=== PATIENT | male | born 1945 | race Caucasian/White ===

== ENCOUNTER 2016-07-28 20:56 | Inpatient (IN) | payer OTHER ==
--- NOTE | 2016-07-28 21:12 | PDOC ---
History of Present Illness - History of Present Illness Initial Comments: 07/28/16 21:25 The patient is a 71 year old male with a past medical hx of HTN who presents to the ED via EMS for evaluation of right sided facial droop and right sided facial weakness since this evening. The patient reports he was coming home from the [facility] and noticed this facial droop when he got home. His family reports he was fine this morning and afternoon. The patient states he had a couple beers at the [facility] but denies any drug or tobacco use. The patient denies any headache, head trauma, chest pain, SOB, fever, chills. Surgical hx: knee surgery, shoulder surgery, colon surgery <Tamanna Leiva - Last Filed: 07/29/16 01:40> - General History Source: Patient, Family Exam Limitations: No Limitations <Tejal Chapman - Last Filed: 08/01/16 07:35> - General Chief Complaint: Facial Droop Stated Complaint: FACIAL DROOP Time Seen by Provider: 07/28/16 21:09 Past History <Tamanna Leiva - Last Filed: 07/29/16 01:40> - Psycho/Social/Smoking Cessation Hx Suicidal Ideation: No Smoking History: Never smoked Have you smoked in the past 12 months: No Information on smoking cessation initiated: No Hx Alcohol Use: No Drug/Substance Use Hx: No <Tejal Chapman - Last Filed: 08/01/16 07:35> - Past Medical History Allergies/Adverse Reactions: Allergies Allergy/AdvReac Type Severity Reaction Status Date / Time No Known Allergies Allergy Verified 07/28/16 21:05 Home Medications: Ambulatory Orders Aspirin [Aspirin EC] 81 mg PO DAILY 07/29/16 Ketotifen Fumarate [Itchy Eye] 5 ml OP BID 07/29/16 Loperamide HCl [Imodium -] 2 mg PO DAILY PRN 07/29/16 Losartan Potassium 100 mg PO DAILY 07/29/16 Mometasone Furoate [Asmanex] 220 mcg IH BID 07/29/16 Tamsulosin HCl [Flomax] 0.4 mg PO DAILY 07/29/16 Atorvastatin Ca [Lipitor] 20 mg PO HS #30 tablet 07/30/16 Atorvastatin Ca [Lipitor] 40 mg PO HS #30 tablet 07/30/16 Felodipine [Felodipine ER] 10 mg PO DAILY 07/30/16 Hydrochlorothiazide 25 mg PO DAILY 07/30/16 Omeprazole 20 mg PO BID 07/30/16 Polyvinyl Alcohol [Artificial Tears] 1 drop OD Q4H PRN #0 drop 07/30/16 Prednisone 10 mg PO ASDIR #12 tablet 07/30/16 Review of Systems - Review of Systems Able to Perform ROS?: Yes Comments:: 07/28/16 21:26 GENERAL/CONSTITUTIONAL: No: fever, chills, loss of appetite. HEAD, EYES, EARS, NOSE AND THROAT: No: change in vision, ear pain, discharge, sore throat, throat swelling. CARDIOVASCULAR: No: chest pain, lightheadedness, palpitations, syncope RESPIRATORY: No: cough, shortness of breath, wheezing, hemoptysis, stridor. GASTROINTESTINAL: No: nausea, vomiting, abdominal cramping, diarrhea, rectal bleeding, constipation. GENITOURINARY: No: dysuria, hematuria, frequency, urgency, flank pain. MUSCULOSKELETAL: No: back pain, neck pain, joint pain, muscle swelling or pain SKIN: No: lesions, pallor, rash or easy bruising. NEUROLOGIC: +Right facial weakness. No: headache, vertigo, paresthesias ENDOCRINE: No: unexplained weight gain or loss HEMATOLOGIC/LYMPHATIC: No: anemia, easy bleeding, swelling nodes <Tamanna Leiva - Last Filed: 07/29/16 01:40> *Physical Exam - Vital Signs Last Vital Signs Temp Pulse Resp BP Pulse Ox 97.6 F 88 20 148/94 99 07/28/16 21:05 07/28/16 21:05 07/28/16 21:05 07/28/16 21:05 07/28/16 21:05 - Physical Exam Comments: 07/29/16 01:39 GENERAL: The patient is in no acute distress. HEAD: Normal with no signs of trauma. EYES: PERRLA, EOMI, sclera anicteric, conjunctiva clear. ENT: Ears normal, nares patent, oropharynx clear without exudates. Moist mucous membranes. NECK: Normal range of motion, supple without lymphadenopathy, JVD, or masses. LUNGS: Breath sounds equal, clear to auscultation bilaterally. No wheezes, and no crackles. HEART:Regular rate and rhythm, normal S1 and S2 without murmur, rub or gallop. ABDOMEN: Soft, nontender, normoactive bowel sounds. No guarding, no rebound. EXTREMITIES: Normal range of motion, no edema. No clubbing or cyanosis. No erythema, or tenderness. NEUROLOGICAL: +See NIHSS MUSCULOSKELETAL: Back nontender to palpation, no CVA tenderness SKIN: Warm, Dry, normal turgor, no rashes or lesions noted. <Tamanna Leiva - Last Filed: 07/29/16 01:40> - Vital Signs Last Vital Signs Temp Pulse Resp BP Pulse Ox 97.6 F 88 20 148/94 99 07/28/16 21:05 07/28/16 21:05 07/28/16 21:05 07/28/16 21:05 07/28/16 21:05 <Tejal Chapman - Last Filed: 08/01/16 07:35> NIH Stroke Scale - Last Known Well Date/Time & Onset Date Last Known Well: 07/28/16 Time Last Known Well: 19:00 - Initial Evaluation Level of consciousness: Alert Ask patient the month and their age: Answers both correctly Ask patient to open & close eyes; make fist and let go: Obeys both correctly Best gaze (horizontal eye movement): Normal Visual field testing: No visual field loss Facial paresis (Show teeth/raise eyebrows/close eyes tight): Complete paralysis of one or both sides (Upper and lower face) Motor Function: Left Arm: Normal Motor Function: Right Arm: Normal (extends arm 90 (or 45) degrees for 10 seconds without drift Motor Function: Left Leg: Normal (extends leg 30 degrees for 5 seconds without drift) Motor Function: Right Leg: Normal (extends leg 30 degrees for 5 seconds without drift) Limb Ataxia: No ataxia Sensory(Use pinprick test arms,legs,trunk,face/side to side): Normal Best language (Describe picture, name items, read sentences): No Aphasia Dysarthria (read several words): Normal articulation Extinction and Inattention: No abnormality - Total Score NIH Stroke Scale Score: 3 <Tejal Chapman - Last Filed: 08/01/16 07:35> tPA Exclusion Checklist 0-3hr - Time Elapsed Date last known well: 07/28/16 Time last known well: 19:00 Elaspsed time: 3 Day(s) and 12 Hour(s) and 32 Minutes - Thrombolytic Therapy Candidate Is the patient eligible for Thrombolytic Therapy?: No - Exclusion Criteria 0-3hr SBP greater than 185 or DBP greater than 110mmHg despite tx: No Recent IC/spinal surgery,head trauma or stroke w/in last 3mo: No Hx of previous IC hemorrhage, IC neoplasm, AVM or aneurysm: No Active internal bleeding: No Blding diathesis(low plt ct, inc PTT,INR>1.7 or use of NOAC): No Symptoms suggest subarachnoid hemorrhage: No CT demonstrates multilobar infarct(>1/3 cerebral hemiphere): No Arterial puncture at noncompressible site in previous 7 days: No Blood glucose concentration less than 50mg/dL (2.7mmol/L): No - Relative Exclusion Criteria 0-3h Life expectancy <1yr/severe co-morbid illness/BALLET MASTER/MISTRESS on admit: No : No Patient/family refused: No Rapid improvement: No Stroke severity too mild: No Recent acute [place] (w/in previous 3 months): No Seizure at onset with postictal residual neuro impairments: No Major surgery or serious trauma w/in previous 14 days: No Recent GI or hemorrhage (w/in previous 21 days): No - Ineligibility reason(s) Reasons No tPA given: See reason(s) noted above (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 Right-sided facial droop. COMPARISON: None. FINDINGS: 1. White matter changes are most suggestive of chronic post ischemic demyelination/small vessel disease. There appear to be lacunar infarcts in the right basal ganglia of indeterminate age. There is no evidence of intracranial hemorrhage or significant mass effect. There is atherosclerotic vascular calcification of the internal carotid arteries bilaterally at the skull base. If there is a clinical suspicion of acute cerebral ischemia and if there is no clinical contraindication, MRI of brain would be helpful. 2. Ventricular size is concordant with the degree of atrophy. 3. The visualized portions of the orbits, paranasal and mastoid sinuses are unremarkable. 4. There are bilateral nasal bone fractures without overlying soft tissue swelling suggestive of sequela of previous fracture. This study was discussed with at 9:37 PM July 28, 2016. THIS DOCUMENT HAS BEEN ELECTRONICALLY SIGNED Tarah Crockett MD 07/28/2016 21:39 EST M.D. Please call Imaging Director [phone] with questions. End of Report Content ====== Security Checker: ([email or web address]) Report Date: 07/28/2016 21:18:00 Report Status: Preliminary Begin of Report Content Referring Physician: Tejal Chapman Patient Name: Kings Chávez THIS IS A PRELIMINARY REPORT FROM [facility] EXAM: CT head without contrast IMAGES: 175 DATE OF SERVICE: 2016-07-28 21:18:59.0 HISTORY:Rule out CVA, TIA. Right-sided facial droop. COMPARISON: None. FINDINGS: 1. White matter changes are most suggestive of chronic post ischemic demyelination/small vessel disease. There appear to be lacunar infarcts in the right basal ganglia of indeterminate age. There is no evidence of intracranial hemorrhage or significant mass effect. There is atherosclerotic vascular calcification of the internal carotid arteries bilaterally at the skull base. If there is a clinical suspicion of acute cerebral ischemia and if there is no clinical contraindication, MRI of brain would be helpful. 2. Ventricular size is concordant with the degree of atrophy. 3. The visualized portions of the orbits, paranasal and mastoid sinuses are unremarkable. 4. There are bilateral nasal bone fractures without overlying soft tissue swelling suggestive of sequela of previous fracture. This study was discussed with at 9:37 PM July 28, 2016. THIS DOCUMENT HAS BEEN ELECTRONICALLY SIGNED Tarah Crockett MD 07/28/2016 21:39 ANA Juárez Please call Imaging Director [phone] with questions. <Tamanna Leiva - Last Filed: 07/29/16 01:40> Total Critical Care Time: 60 Critical Care Statement: The care of this patient involved high complexity decision making to prevent further life threatening deterioration of the patient 's condition and/or to evalute & treat vital organ system(s) failure or risk of failure. - Medical Decision Making Note: Pt presents to [facility] ER with a complaint of right sided facial weakness Althought not exact, he thinks his symptoms began sometimes after 6pm He was at the [facility], he had 1 beer He noted that when leaving, he developed dizziness Actually, pt states that his PMD sent him to the Neurologist who wanted him to have an MRI for his dizziness Pt states that he could not tolerate MRI as he has severe claustrophobia He denies headache He denies head trauma he denies fevers or chills PMH: HTN, denies HLD, denies heart disease He thinks he may have had a stroke after his colon resection PSH: colon resection, knee surgery Meds: he doesn't know On examination Right side of face paralyzed including eyebrow and lower face Pt with difficulty blinking unless he forces right eye closed will active Code Holland given history 07/28/16 21:36 Called by imaging stone trimmer No acute findings Signs of an old stroke Laboratory Tests 07/28/16 07/28/16 07/28/16 21:40 21:40 21:40 WBC 6.5 Hgb 13.7 Hct 40.8 Plt Count 222 Neutrophils % 76.9 Lymphocytes % 12.1 INR 1.14 Sodium 137 Potassium 3.8 Chloride 101 Carbon Dioxide 23 Anion Gap 13 BUN 15 Creatinine 1.1 Random Glucose 117 H Creatine Kinase 205 CK-MB (CK-2) 2.717 Troponin I < 0.02 Urine Blood Urine Nitrite Ur Leukocyte Esterase 07/28/16 22:50 WBC Hgb Hct Plt Count Neutrophils % Lymphocytes % INR Sodium Potassium Chloride Carbon Dioxide Anion Gap BUN Creatinine Random Glucose Creatine Kinase CK-MB (CK-2) Troponin I Urine Blood Negative Urine Nitrite Negative Ur Leukocyte Esterase Negative 07/28/16 21:39 received call back from Dr Mckeon Pt demonstrates inability to blink or lift right eyebrow AND right facial weakness 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
[2016-07-28 21:13] VITALS: BMI 29.1
[2016-07-28] MEDS ORDERED: SODIUM CHLORIDE 1,000 ML IV SCH (21:15)
[2016-07-28 21:50] LABS: BASOPHIL 0.8 % (0-2.0); EOSINOPHIL 1.5 % (0-4.5); MCH 30.2 pg (25.7-33.7); MCHC 33.6 g/dl (32.0-35.9); MEAN CELL VOLUME 89.7 fl (80-96); MEAN PLT VOLUME 8.3 fl (7.5-11.1); NEUTROPHILS 76.9 % (42.8-82.8); PLATELET COUNT 222 K/MM3 (134-434); RDW 14.4 % (11.9-15.9); WHITE BLOOD COUNT 6.5 K/mm3 (4.0-10.0)
[2016-07-28 22:03] LABS: INR 1.14 (0.82-1.09); PROTHROMBIN TIME (PATIENT) 12.6 SEC (9.98-11.88)
[2016-07-28 22:12] LABS: ALBUMIN 3.7 g/dl (3.4-5.0); ANION GAP 13 (8-16); BILIRUBIN,TOTAL 0.5 mg/dL (0.2-1.0); CALCIUM 8.6 mg/dL (8.5-10.1); CHOLESTEROL 198 mg/dL (50-200); CO2 23 mmol/L (21-32); COCKROFT - GAULT 86.19; CREATININE 1.1 mg/dL (0.7-1.3); GLUCOSE,RANDOM 117 mg/dL (74-106); LDL CHOLESTEROL (ONLY SJRH) 122 mg/dL (5-100); SGPT/ALT 20 U/L (12-78); TOT PROT 7.1 g/dl (6.4-8.2)
[2016-07-28 22:13] LABS: ALK PHOS 104 U/L (45-117); TROPONIN I < 0.02 ng/ml (0.00-0.05)
[2016-07-28 22:16] LABS: SGOT/AST 21 U/L (15-37)
[2016-07-28] MEDS ORDERED: ASPIRIN 325 MG TABLET PO ONE (22:25)
--- NOTE | 2016-07-28 22:33 | HP ---
[id number], HTN, hx of colon cancer, presents with right-sided facial droop since 7:30pm this afternoon. He woke up in his usual state of health, spent the day at [facility] without any events, ate and drank 1 beer with difficulty. Around 7pm he arrived at his son's house, while walking up the hill to the house he felt dizzy and needed to hold onto a car to stabilize himself he made it to his son's house, sat down and improved, son notes no facial asymmetry. The patient stared to watch TV and notes sudden b/l blurry vision at 7:30pm, he went to the bathroom and noticed he had difficulty blinking in his left eye, the "muscle strength in his eyelids was weak" and drooping of his right face. He sat down on the couch and felt the dizziness get worse and called his son to go to the hospital. For past several years he has had episodes of dizziness, when initially standing , occasionally when walking and sometimes at rest that takes several minutes to resolve, he was told by his nursing assoc to not lean forward. Underwent full physical with labs last month at the [facility] and was told everything was fine. Denies new medications, recent URI/UTI/GI illness, fever, chest pain, loc, falls , difficulty breathing, difficulty swallowing, palpitations. ER course was notable for: (1) Head CT (2) ASA 325mg Recent Travel: none PAST MEDICAL HISTORY: Colon cancer dx 2003, s/p laporatomy and chemotherapy 2006 HTN HLD vertigo Aortic aneurysm PAST SURGICAL HISTORY: laparotomy 2006 b/l knee and right shoulder surgeries for "torn ligaments/rotar cuff", >10yrs ago Social History: Smoking: never Alcohol: denies Drugs: denies Family History: Uncle with cancer dx'ed age 70, NO family hx of strokes, [place], DM Allergies No Known Allergies Allergy (Verified 07/28/16 21:05) HOME MEDICATIONS: Takes 4 medications; "blood pressure," "cholesterol", "asa 81", family to bring the pills in the morning. REVIEW OF SYSTEMS CONSTITUTIONAL: Absent: fever, chills, diaphoresis, generalized weakness, malaise, loss of appetite, weight change HEENT: Absent: rhinorrhea, nasal congestion, throat pain, throat swelling, difficulty swallowing, mouth swelling, ear pain, eye pain, visual changes CARDIOVASCULAR: Absent: chest pain, syncope, palpitations, irregular heart rate, lightheadedness , peripheral edema RESPIRATORY: Absent: cough, shortness of breath, dyspnea with exertion, orthopnea, wheezing, stridor, hemoptysis GASTROINTESTINAL: Present: diarrhea/constipation, intermittent - started after his laporatomy for colon cancer Absent: abdominal pain, abdominal distension, nausea, vomiting, melena, hematochezia GENITOURINARY: Present: frequency Absent: dysuria, urgency, hesitancy, hematuria, flank pain, genital pain MUSCULOSKELETAL: Absent: myalgia, arthralgia, joint swelling, back pain, neck pain SKIN: Absent: rash, itching, pallor HEMATOLOGIC/IMMUNOLOGIC: Absent: easy bleeding, easy bruising, lymphadenopathy, frequent infections ENDOCRINE: Absent: unexplained weight gain, unexplained weight loss, heat intolerance, cold intolerance NEUROLOGIC: Present: dizziness, unsteady gait Absent: headache, focal weakness or paresthesias, seizure, mental status changes , bladder or bowel incontinence PSYCHIATRIC: Absent: anxiety, depression, suicidal or homicidal ideation, hallucinations. PHYSICAL EXAMINATION Vital Signs - 24 hr 07/28/16 21:05 Temperature 97.6 F Pulse Rate 88 Respiratory 20 Rate Blood Pressure 148/94 O2 Sat by Pulse 99 Oximetry (%) GENERAL: Awake, alert, and fully oriented, in no acute distress. HEAD: Normal with no signs of trauma. EYES: sclera anicteric, conjunctiva clear. right lower eyelid droop EARS, NOSE, THROAT: Ears normal, nares patent, oropharynx clear without exudates /lesions. Moist mucous membranes. normal TM b/l. NECK: Normal range of motion, supple without lymphadenopathy, JVD, or masses. no carotid bruits LUNGS: Breath sounds equal, clear to auscultation bilaterally. No wheezes, and no crackles. No accessory muscle use. HEART: Regular rate and rhythm, normal S1 and S2 without murmur, rub or gallop. ABDOMEN: Soft, nontender, not distended, normoactive bowel sounds, no guarding, no rebound, no masses. brandon-umbilical vertical well-healed scar. MUSCULOSKELETAL: Normal range of motion at all joints. No bony deformities or tenderness. No CVA tenderness. UPPER EXTREMITIES: 2+ pulses, warm, well-perfused. No cyanosis. No clubbing. No peripheral edema. LOWER EXTREMITIES: 2+ pulses, warm, well-perfused. No calf tenderness. No peripheral edema. NEUROLOGICAL: Normal speech - family confirm no change in tone/quality. hearing intact b/l. PERRLA. peripheral visual field wnl. horizontal nystagmus in right eye with lateral gaze unable to wrinkle right forehead, droop in lower right eyelid and flattening of right nasolabial fold, facial asymmetry with smile. unable to keep right eye closed to resistance, unable to fully close right eye due to drooping of lower eyelid. uvula midline, tongue protrusion midline. sensation to sharp and dull intact in b/l face/arms/palms/fingers/legs/feet, can correctly discern between the sharp and dull but says left side sensation is less intense than right at all sites tested. feels that left side of lips( upper and lower) are numb. motor strength at shoulders/biceps/triceps/wrists/fingers/hips/knees/ankles on flexion and extension 5/5. romberg negative, babinski negative. equal weight bearing in b/l legs. gait unstable. biceps/brachioradialis 2+ b/l [id number] and heel to angulo wnl b/l. no dysdiadochokinesia no tremors, no pronator drift. swallowed water without choking/cough/dribbling. PSYCHIATRIC: Cooperative. Good eye contact. Appropriate mood and affect. SKIN: Warm, dry, normal turgor, no rashes or lesions noted, normal capillary refill. Laboratory Results - last 24 hr 07/28/16 07/28/16 07/28/16 21:40 21:40 21:40 WBC 6.5 RBC 4.54 Hgb 13.7 Hct 40.8 MCV 89.7 MCHC 33.6 RDW 14.4 Plt Count 222 MPV 8.3 Neutrophils % 76.9 Lymphocytes % 12.1 Monocytes % 8.7 Eosinophils % 1.5 Basophils % 0.8 Sodium 137 Potassium 3.8 Chloride 101 Carbon Dioxide 23 Anion Gap 13 BUN 15 Creatinine 1.1 Creat Clearance w eGFR > 60 Random Glucose 117 H Calcium 8.6 Total Bilirubin 0.5 AST 21 ALT 20 Alkaline Phosphatase 104 Creatine Kinase 205 CK-MB (CK-2) Rel Index Cancelled Troponin I < 0.02 Total Protein 7.1 Albumin 3.7 Triglycerides 124 Cholesterol 198 Total LDL Cholesterol 122 H HDL Cholesterol 54 ASSESSMENT/PLAN: 71 yr old man with HLD, HTN, hx of colon ca presents with sudden onset right facial droop since 7:30pm today admitted for further evaluation #r/o CVA - NIH stroke scale: 4(mild sensory loss and unilateral facial palsy) - Douglass's palsy is possible however with new onset gait instability, suspicious for basilar pathology, will defer steriods and anti-virals until CVA is ruled out - head CT negative for acute hemorrhage/mass, positive for white matter changes are most suggestive of chronic post ischemic demyelination/small vessel disease. There appear to be lacunar infarcts in the right basal ganglia of indeterminate age. - Neurology consulted - Dr. Mckeon; TPA not indicated at this time Investigations - Tele monitoring for arrhythmia, TTE, carotid doppler, to investigate possible source of emboli - MRI of brain for better sensitivity (patient suffers from claustrophobia, may require sedation) - NPO pending speech and swallow evaluation, patient has been drinking water and swallowing pills in the ED without difficulty - fall precuations pending physical therapy evaluation Medications - Aspirin 81 mg daily - Atorvastatin 40 mg daily - IVF Ns @42mls/hr - Artifical tears in right eye prn #HTN - Resume home medications once verified, family to bring them in the morning #HLD - lipitor 40mg po qhs #DVT - SCDs #diet: npo pending speech and swallow Visit type - Emergency Visit Emergency Visit: Yes ED Registration Date: 07/28/16 Care time: The patient presented to the Emergency Department on the above date and was hospitalized for further evaluation of their emergent condition. - New Patient This patient is new to me today: Yes Date on this admission: 07/28/16 - Critical Care Critical Care patient: No
--- NOTE | 2016-07-28 22:33 | PN ---
<Bossman May - Last Filed: 07/28/16 22:33> Teaching Attending Note Name of Resident: Tod Butcher ATTENDING PHYSICIAN STATEMENT I saw and evaluated the patient. I reviewed the resident's note and discussed the case with the resident. I agree with the resident's findings and plan as documented. SUBJECTIVE: OBJECTIVE: ASSESSMENT AND PLAN: <ArmaniTal - Last Filed: 07/29/16 02:20> Teaching Attending Note ATTENDING PHYSICIAN STATEMENT I saw and evaluated the patient. I reviewed the resident's note and discussed the case with the resident. I agree with the resident's findings and plan as documented. Imaging data and chart reviewed. SUBJECTIVE: The patient is a 71 year old male with a past medical history of colon cancer (s /p colectomy 2005) , thoracic aneurysm, and HTN who presents to the ED via EMS for evaluation of weakness and right sided facial droop since 7pm 07/28/16. The patient reported at he was coming home from the [facility] and when he was walking toward the house when he began feeling weakness in his legs. Once he was home he noticed a right sided facial droop, blurred vision, dizziness, unstable gait , and right sided facial numbness. He noted that his dizziness is exacerbated by movement. He denied LOC, head trauma, headache, nausea, vomiting, chest pain , or cough. Case was discussed with neurologist street commissioner and family and decision was made not to administer TPA. OBJECTIVE: Vital Signs: Last Vital Signs Temp Pulse Resp BP Pulse Ox 97.6 F 88 20 148/94 99 07/28/16 21:05 07/28/16 21:05 07/28/16 21:05 07/28/16 21:05 07/28/16 21:05 Physical Exam: GENERAL: Awake, alert, and fully oriented, in no acute distress. HEENT: Atraumatic. Moist mucosa. Normocephalic. No sinus tenderness. No LAD. NECK: No JVD. No thyroid masses. Supple. LUNGS: Clear to auscultation bilaterally. No wheezing, rhonchi or rales. HEART: Regular rate and rhythm, normal S1 and S2, no murmurs, rubs or gallops, peripheral pulses normal and equal bilaterally. ABDOMEN: (+) Well healed scar. Soft, nontender, normoactive bowel sounds. No guarding, no rebound. No Masses. MUSCULOSKELETAL: No joint tenderness or erythema. No muscle tenderness. Normal muscle bulk and tone. EXTREMITIES: Normal inspection, No edema. No clubbing or cyanosis. Moves all extremities. NEUROLOGICAL: (+) Slurred speech, right sided facial droop, decreased right sided gaze ability, decreased sensation on left upper and lower extremities. Motor 5/5 in all extremities, babinski's was negative bilaterally. No hyperreflexia noted. SKIN: Warm, dry, normal turgor, no rashes or lesions noted. Labs: CBCD WBC 6.5 K/mm3 (4.0-10.0) 07/28/16 21:40 RBC 4.54 M/mm3 (4.00-5.60) 07/28/16 21:40 Hgb 13.7 GM/dL (11.7-16.9) 07/28/16 21:40 Hct 40.8 % (35.4-49) 07/28/16 21:40 MCV 89.7 fl (80-96) 07/28/16 21:40 MCHC 33.6 g/dl (32.0-35.9) 07/28/16 21:40 RDW 14.4 % (11.9-15.9) 07/28/16 21:40 Plt Count 222 K/MM3 (134-434) 07/28/16 21:40 MPV 8.3 fl (7.5-11.1) 07/28/16 21:40 CMP Sodium 137 mmol/L (136-145) 07/28/16 21:40 Potassium 3.8 mmol/L (3.5-5.1) 07/28/16 21:40 Chloride 101 mmol/L (98-107) 07/28/16 21:40 Carbon Dioxide 23 mmol/L (21-32) 07/28/16 21:40 Anion Gap 13 (8-16) 07/28/16 21:40 BUN 15 mg/dL (7-18) 07/28/16 21:40 Creatinine 1.1 mg/dL (0.7-1.3) 07/28/16 21:40 Creat Clearance w eGFR > 60 (>60) 07/28/16 21:40 Calcium 8.6 mg/dL (8.5-10.1) 07/28/16 21:40 Total Bilirubin 0.5 mg/dL (0.2-1.0) 07/28/16 21:40 AST 21 U/L (15-37) 07/28/16 21:40 ALT 20 U/L (12-78) 07/28/16 21:40 Alkaline Phosphatase 104 U/L (45-117) 07/28/16 21:40 Total Protein 7.1 g/dl (6.4-8.2) 07/28/16 21:40 Albumin 3.7 g/dl (3.4-5.0) 07/28/16 21:40 Imaging: DATE OF SERVICE: 2016-07-28 21:18:59.0 HISTORY:Rule out CVA, TIA. Right-sided facial droop. COMPARISON: None. FINDINGS: 1. White matter changes are most suggestive of chronic post ischemic demyelination/small vessel disease. There appear to be lacunar infarcts in the right basal ganglia of indeterminate age. There is no evidence of intracranial hemorrhage or significant mass effect. There is atherosclerotic vascular calcification of the internal carotid arteries bilaterally at the skull base. If there is a clinical suspicion of acute cerebral ischemia and if there is no clinical contraindication, MRI of brain would be helpful. 2. Ventricular size is concordant with the degree of atrophy. 3. The visualized portions of the orbits, paranasal and mastoid sinuses are unremarkable. 4. There are bilateral nasal bone fractures without overlying soft tissue swelling suggestive of sequela of previous fracture. This study was discussed with at 9:37 PM July 28, 2016. THIS DOCUMENT HAS BEEN ELECTRONICALLY SIGNED Tarah Crockett MD 07/28/2016 21:39 EST Chest X-ray. Impression: No official reading. ASSESSMENT AND PLAN: 1. R/o CVA - acute right facial droop and subjective left sided upper and lower extremity numbness associated with dizziness and unsteady gait raises suspicion for acute CVA negative initially CT scan of head. Neurology recommended no TPA. - Neurology consult - Aspirin 81 mg daily - Atorvastatin 40 mg daily - Transthoracic echo - Carotid duplex - MRI of brain - NPO - Speech and swallow evaluation - Rehab evaluation - Neuro checks Q4h - Fall precautions 2. HTN - Resume home medications 3. DVT PPX- low risk for DVT - SCDs Admit to tele Documentation prepared by Tal Lomeli, acting as medical records manager for Dr. Bossman May MD.
[2016-07-28] MEDS ORDERED: ASPIRIN 325 MG TABLET ONE (22:50)
[2016-07-28 22:54] LABS: URINE APPEARANCE CLEAR; URINE BILIRUBIN NEGATIVE (NEGATIVE); URINE BLOOD NEGATIVE (NEGATIVE); URINE COLOR COLORLESS; URINE GLUCOSE (UA) NEGATIVE (NEGATIVE); URINE KETONE TRACE (NEGATIVE); URINE LEUK ESTERASE NEGATIVE (NEGATIVE); URINE NITRITE NEGATIVE (NEGATIVE); URINE PROTEIN NEGATIVE (NEGATIVE); URINE UROBILINOGEN NEGATIVE E.U./dl (0.2-1.0)
[2016-07-29] MEDS ORDERED: ARTIFICIAL TEARS (POLYVINYL ALCOHOL 1.4%) OPTH DROPS OU PRN (00:17)
[2016-07-29] MEDS ORDERED: ATORVASTATIN CA 40 MG TABLET (FP) PO ONE (00:49)
[2016-07-29] MEDS ORDERED: ARTIFICIAL TEARS (POLYVINYL ALCOHOL 1.4%) OPTH DROPS OD PRN (04:34)
[2016-07-29] MEDS: ASPIRIN COATED 81 MG TABLET.EC PO SCH (09:33)
--- NOTE | 2016-07-29 12:19 | PN ---
Progress Note (short form) - Note Progress Note: Subjective: no fever or chills , no abd pain , no SINGH , no visual changes . feels different on LUE and LLE. he reports episodes of light headedness before He reports plastic sx on his R eye before , and since then his R eye is droopy and has eye asymmetry. not sure if he was not ablle to lift up his R eyebrow before this happened Objective: Vital Signs: Last Vital Signs Temp Pulse Resp BP Pulse Ox 98.2 F 64 14 152/90 96 07/29/16 08:30 07/29/16 11:14 07/29/16 08:30 07/29/16 11:14 07/29/16 09:00 Physical Exam: NAD , awake , alert and oriented x3. HEENT: R lower facial droop. R eye with droop and skin scarring ( old per patient ). MMM CV: RRR, no MRG Lunsg : CTAB Abd : soft, NT, ND , NL BS Ext : no edema , n o erythema Neuro : awake , alert and oriented x3. Nl speech . R lower facial droop. R eye with droop and skin scarring ( old per patient ). tongue at mid line , uvula at mid line . symmetric wrinkles on fore head. EOMI except for some lag in R lateral gaze ( after eye surgery ) . round equal reactive pupils . Nl facial sensation Strength 5/5 in upper and lower ext proximally and distally. sensatio to light touch is symmetric . reflexes 2+ knee jerk and biceps b/l. nose to finger NL both sides Labs: Laboratory Results - last 24 hr 07/28/16 07/28/16 07/28/16 21:40 21:40 21:40 WBC 6.5 RBC 4.54 Hgb 13.7 Hct 40.8 MCV 89.7 MCHC 33.6 RDW 14.4 Plt Count 222 MPV 8.3 Neutrophils % 76.9 Lymphocytes % 12.1 Monocytes % 8.7 Eosinophils % 1.5 Basophils % 0.8 INR 1.14 Sodium 137 Potassium 3.8 Chloride 101 Carbon Dioxide 23 Anion Gap 13 BUN 15 Creatinine 1.1 Creat Clearance w eGFR > 60 Random Glucose 117 H Calcium 8.6 Total Bilirubin 0.5 AST 21 ALT 20 Alkaline Phosphatase 104 Creatine Kinase 205 Creatine Kinase Index 1.3 CK-MB (CK-2) 2.717 CK-MB (CK-2) Rel Index Troponin I < 0.02 Total Protein 7.1 Albumin 3.7 Triglycerides 124 Cholesterol 198 Total LDL Cholesterol 122 H HDL Cholesterol 54 Urine Color Urine Appearance Urine pH Ur Specific [place] Urine Protein Urine Glucose (UA) Urine Ketones Urine Blood Urine Nitrite Urine Bilirubin Urine Urobilinogen Ur Leukocyte Esterase Blood Type Antibody Screen 07/28/16 07/28/16 07/28/16 21:40 21:40 22:50 WBC RBC Hgb Hct MCV MCHC RDW Plt Count MPV Neutrophils % Lymphocytes % Monocytes % Eosinophils % Basophils % INR Sodium Potassium Chloride Carbon Dioxide Anion Gap BUN Creatinine Creat Clearance w eGFR Random Glucose Calcium Total Bilirubin AST ALT Alkaline Phosphatase Creatine Kinase Creatine Kinase Index CK-MB (CK-2) CK-MB (CK-2) Rel Index Cancelled Troponin I Total Protein Albumin Triglycerides Cholesterol Total LDL Cholesterol HDL Cholesterol Urine Color Colorless Urine Appearance Clear Urine pH 8.0 Ur Specific [place] 1.009 Urine Protein Negative Urine Glucose (UA) Negative Urine Ketones Trace H Urine Blood Negative Urine Nitrite Negative Urine Bilirubin Negative Urine Urobilinogen Negative Ur Leukocyte Esterase Negative Blood Type B POSITIVE Antibody Screen Negative Imaging: head CT reviewed. Assessment/Plan: 71 y/o man with h/o HTN, BPH, HLP,colon cancer s/p resection in 2005, and previous R eye sx with permanent deformity and restriction in R lateral gaze, who presented with R facial droop . 1- R lower facial droop: The R eye deformity is old due to a previous surgery. He has R lower facial droop, and sensory abnormalities in LUE, LLE , light headedness and imbalance . This indicates a Brain stem stroke . CT scan has evidence of old strokes, which explains his previous intermittent symptoms of dizziness - follow Echo , and MANUELITO - MRI of brain - tele reviewed. NSR , no events - speech eval by RN, then official speech eval - PT eval - Permissive HTN x 24 hr . will treat BP if only > 220/110. - will work on secondary prophylaxis : asa , and lipitor ( LDL 122 > goal of 70) . - takes lipitor at home but not sure of dose - neuro eval - check Hb A1c 2- H/O HTN: permissive HTN for now - He brought some of his meds with him. Losartan was confirmed . - he thinks he takes felodipine and HCTZ , will confirm tomorrow 3- BPH : cont tamsilosin MEds were reviewed with pt and updated in EMR. will bring list of the rest of medicines ( felodipine, HCTZ, omeprazol, and lipitor ) Visit type - Emergency Visit Emergency Visit: Yes ED Registration Date: 07/28/16 Care time: The patient presented to the Emergency Department on the above date and was hospitalized for further evaluation of their emergent condition. - New Patient This patient is new to me today: Yes Date on this admission: 07/29/16 - Critical Care Critical Care patient: No
--- NOTE | 2016-07-29 12:26 | EKG ---
Test Reason : Blood Pressure : / mmHG Vent. Rate : 081 BPM Atrial Rate : 081 BPM P-R Int : 186 ms QRS Dur : 100 ms QT Int : 402 ms P-R-T Axes : 029 -45 025 degrees QTc Int : 466 ms NORMAL SINUS RHYTHM LEFT ANTERIOR FASCICULAR BLOCK VOLTAGE CRITERIA FOR LEFT VENTRICULAR HYPERTROPHY ABNORMAL ECG NO PREVIOUS ECGS AVAILABLE Confirmed by SIRENA HERR MD ([id number]) on 07/29/2016 12:25:47 PM Referred By: Confirmed By:SIRENA HERR MD
[2016-07-29] MEDS ORDERED: LORAZEPAM CARPU-JECT 2 MG/ML DISP.SYRIN IVPUSH ONE (12:46)
[2016-07-29] MEDS ORDERED: ATORVASTATIN CA 40 MG TABLET (FP) PO SCH (22:00)
--- NOTE | 2016-07-29 23:52 | CON.NEURO ---
Consult Consult Specialty:: Neurology - History of Present Illness History of Present Illness: covering for Dr Roldan 71 yr old man with HLD, HTN, hx of colon cancer, presents with right-sided facial droop since 7:30pm 4/22 . 7pm he arrived at his son's house, noted to be dizzy and son noted facial weakness. episodes of dizziness, when initially standing, occasionally when walking- no associated diplopia, facila numbness; does not endorse numbness of his exe today , though mentioned? left sided numbness to primary team Denies new medications, recent URI/UTI/GI illness, fever, chest pain, loc, falls , difficulty breathing, difficulty swallowing, palpitations. CT HD chronic nasal FX. MRI BRAIN-right thalamic lacune, BL BG infarcts chronic. no acute findings, Dopplers no high grade stenosis. - History Source History Provided By: Patient, Medical Record - Alcohol/Substance Use Hx Alcohol Use: No - Smoking History Smoking history: Never smoked Have you smoked in the past 12 months: No Home Medications - Allergies Allergies/Adverse Reactions: Allergies Allergy/AdvReac Type Severity Reaction Status Date / Time No Known Allergies Allergy Verified 07/28/16 21:05 - Home Medications Home Medications: Ambulatory Orders Aspirin [Aspirin EC] 81 mg PO DAILY 07/29/16 Ketotifen Fumarate [Itchy Eye] 5 ml OP BID 07/29/16 Loperamide HCl [Imodium -] 2 mg PO DAILY PRN 07/29/16 Losartan Potassium 100 mg PO DAILY 07/29/16 Mometasone Furoate [Asmanex] 220 mcg IH BID 07/29/16 Psyllium Husk [Psyllium] 0.4 gm PO BID 07/29/16 Tamsulosin HCl [Flomax] 0.4 mg PO DAILY 07/29/16 Physical Exam-Neuro Vital Signs: Vital Signs Temperature 97.5 F L 07/29/16 18:27 Pulse Rate 67 07/29/16 18:27 Respiratory Rate 18 07/29/16 18:27 Blood Pressure 157/97 07/29/16 18:27 O2 Sat by Pulse Oximetry (%) 96 07/29/16 09:00 Constitutional: Yes: Well Nourished, No Distress Neck: Yes: WNL Cardiovascular: Yes: Regular Rate and Rhythm Respiratory: Yes: CTA Bilaterally Gastrointestinal: Yes: Normal Bowel Sounds Labs: INR, PTT INR 1.14 (0.82-1.09) 07/28/16 21:40 - Neuro Exam Level Of Consciousness: Yes: Alert, Oriented to Person Eyes: Yes: PERRL Speech: Other (dysrthria , RIGHT LMN facial, facial sesnation intact, no focal weakness, no drift, no hemisesnory to PP, reflexes symmetric) NIH Stroke Scale - Total Score NIH Stroke Scale Score: 0 Imaging - Results Cat Scan: Report Reviewed, Image Reviewed MRI: Report Reviewed, Image Reviewed Problem List - Problems (1) Facial weakness Assessment/Plan: 71 yr old man with HLD, HTN, hx of colon cancer, presents with right-sided facial droop since 7:30pm 07/28 . 7pm he arrived at his son's house, noted to be dizzy and son noted facial weakness. episodes of dizziness, when initially standing, occasionally when walking- no associated diplopia, facila numbness; does not endorse numbness of his exe today , though mentioned? left sided numbness to primary team Denies new medications, recent URI/UTI/GI illness, fever, chest pain, loc, falls , difficulty breathing, difficulty swallowing, palpitations. CT HD chronic nasal FX. MRI BRAIN-right thalamic lacune, BL BG infarcts chronic. no acute findings, Dopplers no high grade stenosis. 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 eye patch/lacrilube ASA, statin and BP control. 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
[2016-07-30] MEDS: ASPIRIN COATED 81 MG TABLET.EC PO SCH (10:41)
[2016-07-30 10:47] VITALS: TEMP 97.7
[2016-07-30 10:48] VITALS: BP 152/95; PULSE 90
[2016-07-30] MEDS ORDERED: amLODIPine BESYLATE 10 MG TABLET (FP) PO SCH (11:00)
[2016-07-30] MEDS ORDERED: HYDROCHLOROTHIAZIDE 25 MG TABLET (FP) PO SCH (11:00)
[2016-07-30] MEDS ORDERED: LOSARTAN POTASSIUM 50 MG TABLET (FP) PO SCH (11:00)
--- NOTE | 2016-07-30 12:06 | CONSULT ---
Admitting History and Physical - Primary Care Physician PCP: Kleber Rodrigez - Admission History of Present Illness: 71 yr old man with HLD, HTN, hx of colon cancer,admitted with right-sided facial droop on 07/28 . MRI BRAIN-right thalamic lacune, BL BG infarcts chronic. no acute findings, Dopplers no high grade stenosis. Right facial weakness LMN likely represents [place] palsy, per neurology History Source: Patient Limitations to Obtaining History: No Limitations - Smoking History Smoking history: Never smoked Have you smoked in the past 12 months: No - Alcohol/Substance Use Hx Alcohol Use: No History - Admission Reason For Visit: FACIAL WEAKNESS - Diagnostics X-ray: Report Reviewed CT Scan: Report Reviewed MRI: Report Reviewed - General Mental Status: Alert and Oriented, Awake and Alert, Able to Follow Commands Attention: Intact Ability to Follow Directions: Excellent Head/Neck Control: WFL - Hearing Hearing: Normal Speech Evaluation - Communication Primary Language: ANGUILLAN Communication: Yes: Within Normal Limits Oral Expression Ability: Yes: No Impairment - Speech Production Able to Make Needs Known: Yes: WNL Intelligibility: Yes: WNL - Speech Characteristics Voice Loudness: Normal Voice Pitch: Yes: Normal Voice Phonatory-based Quality: Yes: Normal Speech Pattern: Normal Speech Clarity: < 100% Nasal Resonance: Normal Articulation: Yes: Precise Rate of Speech: Intact - Language/Auditory Comprehension Follows: Yes: 2 Stage Simple Commands Observation: Able to respond to yes/no queries: Yes, Yes/No Confusion: No, Comprehends Conversational Speech: Yes - Language/Verbal Expression Able to Respond to Simple Queries: Yes: WNL Able to Communicate Wants and Needs: Yes: WNL Functional Communication Status: Yes: WNL - Memory/Perception assistant terminal manager Memory: Yes: WNL Short Term Memory: Yes: WNL - Swallow Evaluation/Bedside Assessment Current Nutritional Intake: Regular, Thin Liquids Oral Secretions: Yes: WFL Dentition: Yes: Adequate, Missing Teeth Facial Symmetry at Rest: Facial Droop Right Facial Symmetry on Retraction: Facial Droop Right Pucker Lips: Droops Right Smile: Droops Right Lingual Movement: Symmetric Lingual Speed of Movement: Normal Lingual Movement Strgth Against Opposition: Normal Lingual Movement Characteristics: Normal Velopharyngeal Movement: Normal Laryngeal Elevation: WFL Rate of Intake: WFL Bolus Size: WFL Labial Seal: WFL Chewing: WFL Oral Prep Time: WFL A-P Transit: WFL Pocketing: None Timing of Swallow: WFL Coughing/Throat Clear: No Change in Voice: No Recommendations - Speech Evaluation, Impression/Plan Impression: Right facial droop c/w castano's palsy. Speech/language/swallowing intact - Disposition Discharge to: To be Determined - Dysphagia Impressions/Plan Swallowing Skills: WFL Dysphagia Impressions: No Impairment *Silent aspiration: cannot be R/O at bedside - Recommendations Diet Consistency: Regular Medication Administration: Whole with water Liquids: Thin Liquids
--- NOTE | 2016-07-30 13:19 | PN ---
Teaching Attending Note Name of Resident: Lars Langley ATTENDING PHYSICIAN STATEMENT I saw and evaluated the patient. I reviewed the resident's note and discussed the case with the resident. I agree with the resident's findings and plan as documented. SUBJECTIVE: no fever or chills, R eye has more drooping now and has hard time keeping it closed. does not feel any difference between L and R sided body OBJECTIVE: NAD , awake , alert and oriented x3. HEENT: R lower facial droop. R eye with droop and skin scarring ( old per patient ).R eye droop is more pronounced today CV: RRR, no MRG Lungs: CTAB Ext : no edema , no erythema Neuro : awake , alert and oriented x3. Nl speech . R lower facial droop. R eye with droop and skin scarring, more pronounced today . tongue at mid line , uvula at mid line . asymmetric wrinkles on fore head today . EOMI except for some lag in R lateral gaze ( after eye surgery ) . round equal pupils . Nl facial sensation Strength 5/5 in upper and lower ext proximally and distally. sensation to light touch is symmetric. reflexes unable to perform reflexes as not relaxed ASSESSMENT AND PLAN: 71 y/o man with h/o HTN, BPH, HLP,colon cancer s/p resection in 2006, and previous R eye sx with permanent deformity and restriction in R lateral gaze, who presented with R facial droop . 1- R facial droop: Although The R eye deformity is old due to a previous surgery , but the eye drooping is more pronounced today, and has asymmetry in fore head . this more indicates a peripheral cause like Douglass's palsy rather than central cause. MRI did not show any acute stroke. I am not clear why he had different feeling in L sided extremities adn dizziness( now resolved ) . ? TIA - Start a short course of prednisone - walking in hallway and has steady gait. speech eval done - echo pending read - cont secondary prophylaxis for stroke ( had old infarcts in brain stem ) . - increase lipitor to 60 . BP control . ASA 2- H/O HTN: resume BP meds d/c home . [facility] .
--- NOTE | 2016-07-30 13:45 | DS ---
Physical Exam: SUBJECTIVE: Patient seen and examined OBJECTIVE: Vital Signs Period Temp Pulse Resp BP Sys/Izaguirre Pulse Ox Last 24 Hr 97.5 F-98.6 F 65-92 18-20 125-157/73-101 99 PHYSICAL EXAM GENERAL: The patient is awake, alert, and fully oriented, in no acute distress. HEAD: Normal with no signs of trauma. EYES: PERRL, extraocular movements intact, injected right conjunctiva ENT: moist mucous membranes. NECK: Trachea midline, full range of motion, supple. LUNGS: Breath sounds equal, clear to auscultation bilaterally, no wheezes HEART: Regular rate and rhythm, S1, S2 without murmur ABDOMEN: Soft, nontender, nondistended, normoactive bowel sounds, no guarding, no rebound, no hepatosplenomegaly, no masses. EXTREMITIES: warm, well-perfused, no edema. NEUROLOGICAL: Rided sided nasolabial fold effacement. Decreased strength of eye lid closing decreased ability to wrinkle forehead on the right. GLobal muscle strength 5/5. negative rhomberg . babinsky-toes down going. bilateral biceps and knee jerk 2+. sensation equal bilaterally PSYCH: Normal mood, normal affect. SKIN: Warm, dry, normal turgor, no rashes or lesions noted. LABS HOSPITAL COURSE: Date of Admission:07/28/16 Date of Discharge: 07/30/16 71M history of HTN HLD presents with right sided facial weakness blurry vision lightheadedness and an abnormal sensation on the left side of the body. Admitted to Neuro/stroke telemtery unit worked up with head CT and Brain MRI which did not show any acute pathology and only showed old infarcts. Started on secondary CVA prophylaxis with statin which was increased and continued aspirin. Home meds verified with PMD and they were restarted. It is possible patient has had a CVA that did not show up on imaging or he may have bells palsy. Discharged with follow up with PMD and neurology. Minutes to complete discharge: 40 Discharge Summary Reason For Visit: FACIAL WEAKNESS Current Active Problems Douglass palsy (Acute) Facial weakness (Acute) BPH (benign prostatic hyperplasia) (Chronic) HLD (hyperlipidemia) (Chronic) Hypertension (Chronic) Condition: Stable - Instructions Diet, Activity, Other Instructions: eat a low sodium diet please not your medication changes we will increase the lipitor to 60mg ever day continue all of your other medications follow up with your primary care doctor follow up with the neurologist take the steroids as prescribed if you have worsening of your symptoms or this happens again go to the nearest emergency room i gave you referrals to 2 different neurologists you can choose who you want to see. Dr. Mckeon saw you here in the hospital or you can see a neurologist at the [facility] Referrals: Vinay Mckeon DO [Staff Physician] - 2 Weeks Ayan Roldan MD [Staff Physician] - 2 Weeks Disposition: HOME - Home Medications Comprehensive Discharge Medication List: Ambulatory Orders Aspirin [Aspirin EC] 81 mg PO DAILY 07/29/16 Ketotifen Fumarate [Itchy Eye] 5 ml OP BID 07/29/16 Loperamide HCl [Imodium -] 2 mg PO DAILY PRN 07/29/16 Losartan Potassium 100 mg PO DAILY 07/29/16 Mometasone Furoate [Asmanex] 220 mcg IH BID 07/29/16 Tamsulosin HCl [Flomax] 0.4 mg PO DAILY 07/29/16 Atorvastatin Ca [Lipitor] 20 mg PO HS #30 tablet 07/30/16 Atorvastatin Ca [Lipitor] 40 mg PO HS #30 tablet 07/30/16 Felodipine [Felodipine ER] 10 mg PO DAILY 07/30/16 Hydrochlorothiazide 25 mg PO DAILY 07/30/16 Omeprazole 20 mg PO BID 07/30/16 Polyvinyl Alcohol [Artificial Tears] 1 drop OD Q4H PRN #0 drop 07/30/16 Prednisone 10 mg PO ASDIR #12 tablet 07/30/16 This patient is new to me today: Yes Date on this admission: 07/30/16 Emergency Visit: Yes ED Registration Date: 07/28/16 Care time: The patient presented to the Emergency Department on the above date and was hospitalized for further evaluation of their emergent condition. Critical Care patient: No - Discharge Referral Referred to [facility] No
== END 2016-07-30 15:55 | disposition home or self-care (01) | DRG 19 ==
LOC: JER 20:56 → JERBED 22:51 → J4S 07-29 05:06
PROVIDERS: ADMIT Internal Medicine; ATTEND Internal Medicine
DX: G51.0 Bell's palsy (principal); I10 Essential (primary) hypertension; R29.703 NIHSS score 3; E78.5 Hyperlipidemia, unspecified; Z85.038 Personal history of other malignant neoplasm of large intestine; N40.0 Benign prostatic hyperplasia without lower urinary tract symptoms
CPT/HCPCS: 36415; 70450-TC; 70551-TC; 71010-TC; 80053; 81003; 82465; 82550; 82553; 83036; 83718; 83721; 84478; 84484; 85025; 85610; 86850; 86900; 86901; 93005; 93010; 93306-TC; 93880-TC; 97116-GP; 97161-GP; 99285-25